=== PATIENT | male | born 1960 | race Caucasian/White ===

== ENCOUNTER → 2017-12-26 | Outpatient (CLI) | payer OTHER ==
[~2017-12-26] MED LIST: CLON.5 PO; Crutch1 EACH EXT; FLUO10 PO; IBUP600 PO; METH10 PO; OXYC30ER PO; PREG100 PO
[2017-12-26 18:12] LABS: BASOPHILS ABSOLUTE AUTO 0.09 K/mm3 (0.00-0.23); BASOPHILS PERCENT AUTO 1 % (0-2); EOSINOPHILS ABSOLUTE AUTO 0.29 K/mm3 (0.00-0.68); EOSINOPHILS PERCENT AUTO 3 % (0-6); Hematocrit 49.3 % (37.0-53.0); Hemoglobin 16.4 g/dL (13.5-17.5); IMMATURE GRAN ABSOLUTE AUTO 0.04 K/mm3 (0.00-0.10); IMMATURE GRAN PERCENT AUTO 0 % (0-1); LYMPHOCYTES ABSOLUTE AUTO 2.24 K/mm3 (0.84-5.20); LYMPHOCYTES PERCENT AUTO 22 % (21-46); MONOCYTES ABSOLUTE AUTO 0.77 K/mm3 (0.16-1.47); MONOCYTES PERCENT AUTO 8 % (4-13); Mean Corpuscular HGB 32.3 pg (26.0-34.0); Mean Corpuscular HGB Conc 33.3 g/dL (31.5-36.5); Mean Corpuscular Volume 97 fL (80-100); Mean Platelet Volume 10.1 fL (9.1-12.4); NEUTROPHILS ABSOLUTE AUTO 6.56 K/mm3 (1.96-9.15); NEUTROPHILS PERCENT AUTO 66 % (41-73); Platelet Count 261 K/mm3 (150-400); RDW Coefficient Variation 12.6 % (11.7-14.2); RDW Standard Deviation 45.4 fL (35.1-46.3); Red Blood Cell Count 5.08 M/mm3 (4.30-5.90); White Blood Cell Count 9.99 K/mm3 (4.00-11.30)
[2017-12-26 18:35] LABS: Prostate Specific Antigen 0.697 ng/mL (0.000-4.000)
== END | disposition home or self-care (01) ==
LOC: LAB 10:08
PROVIDERS: Nurse Practitioner Adult Health
DX: E29.1 Testicular hypofunction (principal); F32.9 Major depressive disorder, single episode, unspecified
CPT/HCPCS: 84153; 84402; 84403; 85025

== ENCOUNTER → 2018-04-03 | Outpatient (CLI) | payer OTHER ==
[2018-04-09 12:09] LABS: FREE TESTOSTERONE(DIRECT) 6.1 pg/mL (7.2-24.0); TESTOSTERONE, SERUM 557 ng/dL (264-916)
== END | disposition home or self-care (01) ==
LOC: LAB 18:00 → LAB SHORT 18:00
PROVIDERS: Nurse Practitioner Adult Health
DX: E29.1 Testicular hypofunction (principal)
CPT/HCPCS: 84402; 84403

== ENCOUNTER → 2018-08-02 | Outpatient (CLI) | payer OTHER ==
[2018-08-02 18:39] LABS: BASOPHILS ABSOLUTE AUTO 0.09 K/mm3 (0.00-0.23); BASOPHILS PERCENT AUTO 1 % (0-2); EOSINOPHILS ABSOLUTE AUTO 0.23 K/mm3 (0.00-0.68); EOSINOPHILS PERCENT AUTO 3 % (0-6); Hematocrit 47.4 % (37.0-53.0); Hemoglobin 15.3 g/dL (13.5-17.5); IMMATURE GRAN ABSOLUTE AUTO 0.02 K/mm3 (0.00-0.10); IMMATURE GRAN PERCENT AUTO 0 % (0-1); LYMPHOCYTES PERCENT AUTO 23 % (21-46); MONOCYTES ABSOLUTE AUTO 0.64 K/mm3 (0.16-1.47); MONOCYTES PERCENT AUTO 9 % (4-13); Mean Corpuscular HGB 31.9 pg (26.0-34.0); Mean Corpuscular HGB Conc 32.3 g/dL (31.5-36.5); Mean Corpuscular Volume 99 fL (80-100); Mean Platelet Volume 10.4 fL (9.1-12.4); NEUTROPHILS ABSOLUTE AUTO 4.45 K/mm3 (1.96-9.15); NEUTROPHILS PERCENT AUTO 63 % (41-73); Platelet Count 231 K/mm3 (150-400); RDW Coefficient Variation 12.6 % (11.7-14.2); RDW Standard Deviation 46.3 fL (35.1-46.3); Red Blood Cell Count 4.79 M/mm3 (4.30-5.90); White Blood Cell Count 7.03 K/mm3 (4.00-11.30)
[2018-08-02 19:17] LABS: Albumin, Blood 3.6 g/dL (3.4-5.0); Alk Phos 56 U/L (50-136); Anion Gap 6 mmol/L (6-16); Aspartate Aminotrans (AST/SGOT 23 U/L (12-37); Bilirubin, Total 0.3 mg/dL (0.1-1.0); Blood Urea Nitrogen 13 mg/dL (8-24); Bun/Creatinine Ratio 15.3 (12.0-20.0); CHOL/HDL RATIO 5.1; CO2, Blood 32 mmol/L (21-32); Calcium, Blood 8.5 mg/dL (8.5-10.1); Chloride, Blood 102 mmol/L (98-108); Cholesterol 199 mg/dL (50-200); Creatinine, Blood 0.85 mg/dL (0.60-1.20); Free Thyroxine 0.92 ng/dL (0.70-1.60); Globulin, Blood 3.7 g/dL (2.2-4.0); Glomerular Filtration Rate >60 (60-); Glucose, Blood 102 mg/dL (70-99); HDL Cholesterol 39 mg/dL (>39); LDL/HDL RATIO 2.9; Low Density Lipoprotein Chol 113 mg/dL (0-110); PSA, %Free 26.1 %; PSA, Free 0.191 ng/mL; Potassium, Blood 4.1 mmol/L (3.5-5.5); Prostate Specific Antigen 0.731 ng/mL (0.000-4.000); Sodium, Blood 140 mmol/L (136-145); Total Protein, Blood 7.3 g/dL (6.4-8.2); Triglycerides 234 mg/dL (30-160); Very Low Density Lipoprot Chol 46 mg/dL (6-32)
[2018-08-02 19:51] LABS: Alanine Aminotransfer (ALT/SGP 29 U/L (12-78)
[2018-08-05 19:06] LABS: FREE TESTOSTERONE(DIRECT) 9.1 pg/mL (7.2-24.0); TESTOSTERONE, SERUM 709 ng/dL (264-916)
== END | disposition home or self-care (01) ==
LOC: LAB SHORT 18:30 → LAB 18:30
PROVIDERS: Nurse Practitioner Adult Health
DX: N52.9 Male erectile dysfunction, unspecified (principal); J44.9 Chronic obstructive pulmonary disease, unspecified; G62.9 Polyneuropathy, unspecified; E78.5 Hyperlipidemia, unspecified; G89.4 Chronic pain syndrome; E29.1 Testicular hypofunction; I10 Essential (primary) hypertension; R73.01 Impaired fasting glucose
CPT/HCPCS: 80053; 80061; 83036; 84153; 84154; 84402; 84403; 84439; 84443; 85025

== ENCOUNTER → 2018-12-10 | Outpatient (CLI) | payer OTHER ==
[2018-12-10 18:06] LABS: BASOPHILS PERCENT AUTO 1 % (0-2); EOSINOPHILS PERCENT AUTO 1 % (0-6); Hematocrit 50.6 % (37.0-53.0); Hemoglobin 16.7 g/dL (13.5-17.5); IMMATURE GRAN ABSOLUTE AUTO 0.02 K/mm3 (0.00-0.10); IMMATURE GRAN PERCENT AUTO 0 % (0-1); LYMPHOCYTES ABSOLUTE AUTO 1.57 K/mm3 (0.84-5.20); LYMPHOCYTES PERCENT AUTO 18 % (21-46); MONOCYTES ABSOLUTE AUTO 0.75 K/mm3 (0.16-1.47); MONOCYTES PERCENT AUTO 8 % (4-13); Mean Corpuscular HGB 32.2 pg (26.0-34.0); Mean Corpuscular Volume 98 fL (80-100); NEUTROPHILS ABSOLUTE AUTO 6.36 K/mm3 (1.96-9.15); NEUTROPHILS PERCENT AUTO 72 % (41-73); RDW Coefficient Variation 12.8 % (11.7-14.2); RDW Standard Deviation 45.6 fL (35.1-46.3); Red Blood Cell Count 5.18 M/mm3 (4.30-5.90)
[2018-12-10 18:16] LABS: Mean Platelet Volume 10.7 fL (9.1-12.4); Platelet Count 163 K/mm3 (150-400)
[2018-12-10 21:19] LABS: Alanine Aminotransfer (ALT/SGP 23 U/L (12-78); Albumin, Blood 3.9 g/dL (3.4-5.0); Albumin/Globulin Ratio 1.1 (0.8-1.8); Alk Phos 54 U/L (50-136); Anion Gap 6 mmol/L (6-16); Aspartate Aminotrans (AST/SGOT 16 U/L (12-37); Bilirubin, Total 0.6 mg/dL (0.1-1.0); Blood Urea Nitrogen 12 mg/dL (8-24); Bun/Creatinine Ratio 15.7 (12.0-20.0); CHOL/HDL RATIO 5.4; CO2, Blood 32 mmol/L (21-32); Calcium, Blood 8.5 mg/dL (8.5-10.1); Chloride, Blood 101 mmol/L (98-108); Cholesterol 209 mg/dL (50-200); Creatinine, Blood 0.77 mg/dL (0.60-1.20); Globulin, Blood 3.7 g/dL (2.2-4.0); Glomerular Filtration Rate >60 (60-); Glucose, Blood 88 mg/dL (70-99); HDL Cholesterol 39 mg/dL (>39); LDL/HDL RATIO 3.7; Low Density Lipoprotein Chol 145 mg/dL (0-110); Potassium, Blood 4.3 mmol/L (3.5-5.5); Sodium, Blood 139 mmol/L (136-145); Total Protein, Blood 7.6 g/dL (6.4-8.2); Triglycerides 125 mg/dL (30-160); Very Low Density Lipoprot Chol 25 mg/dL (6-32)
== END ==
LOC: LAB SHORT 11:45 → LAB 11:45
PROVIDERS: Nurse Practitioner Family
DX: E29.1 Testicular hypofunction (principal); I10 Essential (primary) hypertension
CPT/HCPCS: 80053; 80061; 84403; 85025

== ENCOUNTER 2020-09-01 11:35 | Emergency (ER) | payer OTHER ==
[~2020-09-01] VITALS: Ht 190.5 cm; Wt 140.6 kg
[~2020-09-01 11:35] MED LIST changes: -AZELASTINE137 MCG/03; -CLONAZEPAM1 MG PO; -Depo-Testos200 MG/ML IM; -Levaquin750 MG PO; -Lisinopril-Hct1 EAC4 PO; -MOBIC15 MG PO; -OXYC30 PO
[2020-09-01 12:37] LABS: BASOPHILS ABSOLUTE AUTO 0.08 K/mm3 (0.00-0.23); BASOPHILS PERCENT AUTO 1 % (0-2); EOSINOPHILS ABSOLUTE AUTO 0.05 K/mm3 (0.00-0.68); EOSINOPHILS PERCENT AUTO 0 % (0-6); Hematocrit 44.4 % (37.0-53.0); Hemoglobin 14.4 g/dL (13.5-17.5); IMMATURE GRAN ABSOLUTE AUTO 0.04 K/mm3 (0.00-0.10); IMMATURE GRAN PERCENT AUTO 0 % (0-1); LYMPHOCYTES PERCENT AUTO 9 % (21-46); MONOCYTES ABSOLUTE AUTO 0.66 K/mm3 (0.16-1.47); MONOCYTES PERCENT AUTO 5 % (4-13); Mean Corpuscular HGB 32.4 pg (26.0-34.0); Mean Corpuscular HGB Conc 32.4 g/dL (31.5-36.5); Mean Corpuscular Volume 100 fL (80-100); NEUTROPHILS ABSOLUTE AUTO 10.83 K/mm3 (1.96-9.15); NEUTROPHILS PERCENT AUTO 85 % (41-73); Platelet Count 169 K/mm3 (150-400); RDW Coefficient Variation 13.5 % (11.7-14.2); RDW Standard Deviation 50.1 fL (35.1-46.3); Red Blood Cell Count 4.45 M/mm3 (4.30-5.90); White Blood Cell Count 12.76 K/mm3 (4.00-11.30)
[2020-09-01 12:44] LABS: Alanine Aminotransfer (ALT/SGP 38 U/L (12-78); Albumin/Globulin Ratio 0.8 (0.8-1.8); Alk Phos 50 U/L (50-136); Anion Gap 3 mmol/L (6-16); Aspartate Aminotrans (AST/SGOT 79 U/L (12-37); Bilirubin, Total 0.9 mg/dL (0.1-1.0); Blood Urea Nitrogen 20 mg/dL (8-24); Bun/Creatinine Ratio 28.7 (12.0-20.0); CO2, Blood 32 mmol/L (21-32); Calcium, Blood 7.9 mg/dL (8.5-10.1); Chloride, Blood 99 mmol/L (98-108); Globulin, Blood 3.7 g/dL (2.2-4.0); Glomerular Filtration Rate >60 (60-); Glucose, Blood 114 mg/dL (70-99); Potassium, Blood 4.2 mmol/L (3.5-5.5); Sodium, Blood 134 mmol/L (136-145); Total Protein, Blood 6.7 g/dL (6.4-8.2)
[2020-09-01 13:28] LABS: Source, Urine Voided
[2020-09-01 14:01] LABS: Bilirubin, Urine Neg (Neg); Blood, Urine 1+ (Neg); Glucose Qualitative, Urine Neg (Neg); Ketones, Urine Neg (Neg); Leukocyte Esterase, Urine Neg (Neg); Nitrite, Urine Neg (Neg); Protein, Urine 1+ (Neg); Urobilinogen, Urine NORM (Normal)
[2020-09-01 14:18] LABS: Appearance, Urine Clear (Clear); Color, Urine Yellow (P-Yellow)
[2020-09-01 14:19] LABS: Bacteria Few /hpf; Squamous Epithelial Cells Not Seen /hpf (Few); White Blood Cells, Urine 0-2 /hpf (0-5)
[2020-09-01] MEDS ORDERED: MOBIC15 MG PO (16:11)
[2020-09-01] MEDS ORDERED: Lisinopril-Hct1 EAC4 PO (16:12)
[2020-09-01] MEDS ORDERED: CLONAZEPAM1 MG PO (16:12)
[2020-09-01] MEDS ORDERED: AZELASTINE137 MCG/03 (16:13)
[2020-09-01] MEDS ORDERED: METH10 PO (16:16)
[2020-09-01] MEDS ORDERED: OXYC30 PO (16:17)
[2020-09-01] MEDS ORDERED: Depo-Testos200 MG/ML IM (16:22)
[2020-09-01] MEDS ORDERED: Levaquin750 MG PO (17:10)
[2020-09-01 17:42] LABS: U Amphetamine Screen Not Detected; U Barbituate Screen Not Detected; U Benzodiazapine Screen DETECTED; U Buprenorphine Screen Not Detected; U Cannabinoids Screen DETECTED; U Cocaine Screen Not Detected; U Methadone Screen DETECTED; U Methamphetamine Screen Not Detected; U Opiates Screen Not Detected; U Oxycodone Screen DETECTED; U Phencyclidine Screen Not Detected; U Propoxyphene Screen Not Detected
== END 2020-09-01 17:59 | disposition home or self-care (01) ==
LOC: ER 11:35
PROVIDERS: Emergency Medicine
DX: R50.9 Fever, unspecified (principal); R00.0 Tachycardia, unspecified; R65.10 Systemic inflammatory response syndrome (SIRS) of non-infectious origin without acute organ dysfunction; L73.9 Follicular disorder, unspecified; R10.30 Lower abdominal pain, unspecified; R41.0 Disorientation, unspecified; Z20.828 Contact with and (suspected) exposure to other viral communicable diseases; Z79.52 Long term (current) use of systemic steroids; Z79.899 Other long term (current) drug therapy; Z87.891 Personal history of nicotine dependence
CPT/HCPCS: 36415; 71045; 74177; 80053; 81001; 83605; 83690; 84484; 85025; 87040; 93005; 93010; 96361; 96365-59; 96367; 96375; 99285-25; A9270; J2060; J2543; J3010; J3370; J7030; Q9967; U0003

== ENCOUNTER → 2020-09-01 | Outpatient (CLI) | payer OTHER ==
[~2020-09-01] MED LIST changes: +AZELASTINE137 MCG/03; +CLONAZEPAM1 MG PO; +Depo-Testos200 MG/ML IM; +Levaquin750 MG PO; +Lisinopril-Hct1 EAC4 PO; +METPRE4DP PO; +MOBIC15 MG PO; +OXYC30 PO; +PRED20 PO
[2020-09-01 11:20] LABS: BASOPHILS ABSOLUTE AUTO 0.05 K/mm3 (0.00-0.23); BASOPHILS PERCENT AUTO 0 % (0-2); EOSINOPHILS ABSOLUTE AUTO 0.06 K/mm3 (0.00-0.68); EOSINOPHILS PERCENT AUTO 1 % (0-6); Hematocrit 44.8 % (37.0-53.0); IMMATURE GRAN ABSOLUTE AUTO 0.04 K/mm3 (0.00-0.10); IMMATURE GRAN PERCENT AUTO 0 % (0-1); LYMPHOCYTES ABSOLUTE AUTO 1.01 K/mm3 (0.84-5.20); LYMPHOCYTES PERCENT AUTO 8 % (21-46); MONOCYTES ABSOLUTE AUTO 0.73 K/mm3 (0.16-1.47); MONOCYTES PERCENT AUTO 6 % (4-13); Mean Corpuscular HGB 32.5 pg (26.0-34.0); Mean Corpuscular HGB Conc 33.5 g/dL (31.5-36.5); Mean Corpuscular Volume 97 fL (80-100); Mean Platelet Volume 9.8 fL (9.1-12.4); NEUTROPHILS ABSOLUTE AUTO 10.98 K/mm3 (1.96-9.15); NEUTROPHILS PERCENT AUTO 85 % (41-73); Platelet Count 164 K/mm3 (150-400); RDW Coefficient Variation 13.8 % (11.7-14.2); RDW Standard Deviation 49.2 fL (35.1-46.3); Red Blood Cell Count 4.62 M/mm3 (4.30-5.90); White Blood Cell Count 12.87 K/mm3 (4.00-11.30)
[2020-09-01 11:31] LABS: Alanine Aminotransfer (ALT/SGP 43 U/L (12-78); Albumin, Blood 3.3 g/dL (3.4-5.0); Albumin/Globulin Ratio 0.8 (0.8-1.8); Alk Phos 49 U/L (40-126); Anion Gap 6 mmol/L (6-16); Aspartate Aminotrans (AST/SGOT 68 U/L (12-37); Bilirubin, Total 0.9 mg/dL (0.1-1.0); Blood Urea Nitrogen 20 mg/dL (8-24); Bun/Creatinine Ratio 24.1 (12.0-20.0); CO2, Blood 32 mmol/L (21-32); Calcium, Blood 8.4 mg/dL (8.5-10.1); Chloride, Blood 95 mmol/L (98-108); Creatinine, Blood 0.83 mg/dL (0.60-1.20); Globulin, Blood 4.1 g/dL (2.2-4.0); Glomerular Filtration Rate >60 (60-); Glucose, Blood 124 mg/dL (70-99); Potassium, Blood 3.7 mmol/L (3.5-5.5); Sodium, Blood 133 mmol/L (136-145); Total Protein, Blood 7.4 g/dL (6.4-8.2)
== END | disposition home or self-care (01) ==
LOC: LAB SHORT 11:14 → LAB EV 11:14
PROVIDERS: Chiropractor
DX: R50.9 Fever, unspecified (principal); Z20.828 Contact with and (suspected) exposure to other viral communicable diseases
CPT/HCPCS: 80053; 83605; 85025; 87040; U0003

== ENCOUNTER → 2021-02-16 | Outpatient (CLI) | payer OTHER ==
[~2021-02-16] MED LIST changes: +AZELASTINE137 MCG/03; +CLONAZEPAM1 MG PO; +Depo-Testos200 MG/ML IM; +Levaquin750 MG PO; +Lisinopril-Hct1 EAC4 PO; +MOBIC15 MG PO; +OXYC30 PO
[2021-02-16 11:29] LABS: BASOPHILS ABSOLUTE AUTO 0.04 K/mm3 (0.00-0.23); BASOPHILS PERCENT AUTO 0 % (0-2); EOSINOPHILS ABSOLUTE AUTO 0.01 K/mm3 (0.00-0.68); EOSINOPHILS PERCENT AUTO 0 % (0-6); Hematocrit 47.6 % (37.0-53.0); Hemoglobin 15.6 g/dL (13.5-17.5); IMMATURE GRAN ABSOLUTE AUTO 0.09 K/mm3 (0.00-0.10); IMMATURE GRAN PERCENT AUTO 1 % (0-1); LYMPHOCYTES ABSOLUTE AUTO 0.98 K/mm3 (0.84-5.20); LYMPHOCYTES PERCENT AUTO 6 % (21-46); MONOCYTES ABSOLUTE AUTO 0.74 K/mm3 (0.16-1.47); MONOCYTES PERCENT AUTO 5 % (4-13); Mean Corpuscular HGB 32.3 pg (26.0-34.0); Mean Corpuscular HGB Conc 32.8 g/dL (31.5-36.5); Mean Corpuscular Volume 99 fL (80-100); Mean Platelet Volume 10.3 fL (9.1-12.4); NEUTROPHILS ABSOLUTE AUTO 14.24 K/mm3 (1.96-9.15); NEUTROPHILS PERCENT AUTO 88 % (41-73); Platelet Count 190 K/mm3 (150-400); RDW Coefficient Variation 13.9 % (11.7-14.2); RDW Standard Deviation 51.1 fL (35.1-46.3); Red Blood Cell Count 4.83 M/mm3 (4.30-5.90)
[2021-02-16 11:43] LABS: Alanine Aminotransfer (ALT/SGP 23 U/L (12-78); Albumin, Blood 3.4 g/dL (3.4-5.0); Albumin/Globulin Ratio 0.8 (0.8-1.8); Alk Phos 47 U/L (40-126); Anion Gap 8 mmol/L (6-16); Aspartate Aminotrans (AST/SGOT 20 U/L (12-37); Bilirubin, Total 0.8 mg/dL (0.1-1.0); Blood Urea Nitrogen 16 mg/dL (8-24); Bun/Creatinine Ratio 19.5 (12.0-20.0); CO2, Blood 31 mmol/L (21-32); Calcium, Blood 9.3 mg/dL (8.5-10.1); Chloride, Blood 99 mmol/L (98-108); Creatinine, Blood 0.82 mg/dL (0.60-1.20); Globulin, Blood 4.2 g/dL (2.2-4.0); Glomerular Filtration Rate >60 (60-); Glucose, Blood 121 mg/dL (70-99); Potassium, Blood 4.1 mmol/L (3.5-5.5); Sodium, Blood 138 mmol/L (136-145); Total Protein, Blood 7.6 g/dL (6.4-8.2)
== END | disposition home or self-care (01) ==
LOC: LAB EV 11:17 → LAB SHORT 11:17
PROVIDERS: Physician Assistant
DX: S71.101A Unspecified open wound, right thigh, initial encounter (principal); S31.809A Unspecified open wound of unspecified buttock, initial encounter; L28.2 Other prurigo
CPT/HCPCS: 80053; 85025; 85651; 87070; 87075; 87077; 87147; 87186; 87205

== ENCOUNTER → 2021-07-29 | Outpatient (CLI) | payer OTHER ==
[2021-07-29 12:04] LABS: BASOPHILS ABSOLUTE AUTO 0.08 K/mm3 (0.00-0.23); BASOPHILS PERCENT AUTO 1 % (0-2); EOSINOPHILS ABSOLUTE AUTO 0.16 K/mm3 (0.00-0.68); EOSINOPHILS PERCENT AUTO 3 % (0-6); Hematocrit 47.9 % (37.0-53.0); Hemoglobin 15.9 g/dL (13.5-17.5); IMMATURE GRAN ABSOLUTE AUTO 0.03 K/mm3 (0.00-0.10); IMMATURE GRAN PERCENT AUTO 1 % (0-1); LYMPHOCYTES ABSOLUTE AUTO 1.87 K/mm3 (0.84-5.20); LYMPHOCYTES PERCENT AUTO 29 % (21-46); MONOCYTES ABSOLUTE AUTO 0.58 K/mm3 (0.16-1.47); MONOCYTES PERCENT AUTO 9 % (4-13); Mean Corpuscular HGB 31.8 pg (26.0-34.0); Mean Corpuscular HGB Conc 33.2 g/dL (31.5-36.5); Mean Corpuscular Volume 96 fL (80-100); Mean Platelet Volume 10.4 fL (9.1-12.4); NEUTROPHILS ABSOLUTE AUTO 3.68 K/mm3 (1.96-9.15); NEUTROPHILS PERCENT AUTO 57 % (41-73); Platelet Count 215 K/mm3 (150-400); RDW Coefficient Variation 13.4 % (11.7-14.2); RDW Standard Deviation 47.7 fL (35.1-46.3)
[2021-07-29 12:41] LABS: Alanine Aminotransfer (ALT/SGP 42 U/L (12-78); Albumin, Blood 3.7 g/dL (3.4-5.0); Alk Phos 85 U/L (40-126); Anion Gap 5 mmol/L (6-16); Aspartate Aminotrans (AST/SGOT 15 U/L (12-37); Bilirubin, Total 0.2 mg/dL (0.1-1.0); Blood Urea Nitrogen 20 mg/dL (8-24); Bun/Creatinine Ratio 26.7 (12.0-20.0); CO2, Blood 31 mmol/L (21-32); Calcium, Blood 8.3 mg/dL (8.5-10.1); Chloride, Blood 103 mmol/L (98-108); Creatinine, Blood 0.75 mg/dL (0.60-1.20); Globulin, Blood 3.6 g/dL (2.2-4.0); Glomerular Filtration Rate >60 (60-); Glucose, Blood 95 mg/dL (70-99); Potassium, Blood 4.5 mmol/L (3.5-5.5); Sodium, Blood 139 mmol/L (136-145); Total Protein, Blood 7.3 g/dL (6.4-8.2)
== END | disposition home or self-care (01) ==
LOC: LAB SHORT 11:58 → LAB 11:58
PROVIDERS: Family Medicine
DX: R58 Hemorrhage, not elsewhere classified (principal)
CPT/HCPCS: 80053; 85025

== ENCOUNTER 2021-11-23 11:49 | Inpatient (IN) | payer OTHER ==
[~2021-11-23] VITALS: Ht 198.1 cm; Wt 120.2 kg
[2021-11-23 12:30] LABS: BASOPHILS ABSOLUTE AUTO 0.08 K/mm3 (0.00-0.23); BASOPHILS PERCENT AUTO 1 % (0-2); EOSINOPHILS ABSOLUTE AUTO 0.13 K/mm3 (0.00-0.68); EOSINOPHILS PERCENT AUTO 2 % (0-6); Hematocrit 48.4 % (37.0-53.0); Hemoglobin 16.1 g/dL (13.5-17.5); IMMATURE GRAN ABSOLUTE AUTO 0.01 K/mm3 (0.00-0.10); IMMATURE GRAN PERCENT AUTO 0 % (0-1); LYMPHOCYTES PERCENT AUTO 20 % (21-46); MONOCYTES ABSOLUTE AUTO 0.69 K/mm3 (0.16-1.47); MONOCYTES PERCENT AUTO 11 % (4-13); Mean Corpuscular HGB 32.1 pg (26.0-34.0); Mean Corpuscular HGB Conc 33.3 g/dL (31.5-36.5); Mean Corpuscular Volume 97 fL (80-100); NEUTROPHILS ABSOLUTE AUTO 4.37 K/mm3 (1.96-9.15); NEUTROPHILS PERCENT AUTO 66 % (41-73); Platelet Count 262 K/mm3 (150-400); RDW Standard Deviation 46.2 fL (35.1-46.3); Red Blood Cell Count 5.01 M/mm3 (4.30-5.90); White Blood Cell Count 6.58 K/mm3 (4.00-11.30)
[2021-11-23 13:08] LABS: Alanine Aminotransfer (ALT/SGP 37 U/L (12-78); Albumin, Blood 3.6 g/dL (3.4-5.0); Albumin/Globulin Ratio 0.9 (0.8-1.8); Alk Phos 83 U/L (50-136); Anion Gap 3 mmol/L (6-16); Aspartate Aminotrans (AST/SGOT 23 U/L (12-37); Bilirubin, Total 0.3 mg/dL (0.1-1.0); Blood Urea Nitrogen 23 mg/dL (8-24); Bun/Creatinine Ratio 35.6 (12.0-20.0); CO2, Blood 33 mmol/L (21-32); Calcium, Blood 9.4 mg/dL (8.5-10.1); Chloride, Blood 102 mmol/L (98-108); Creatinine, Blood 0.65 mg/dL (0.60-1.20); Globulin, Blood 3.9 g/dL (2.2-4.0); Glomerular Filtration Rate >60 (60-); Glucose, Blood 94 mg/dL (70-99); Potassium, Blood 4.3 mmol/L (3.5-5.5); Sodium, Blood 138 mmol/L (136-145); Total Protein, Blood 7.5 g/dL (6.4-8.2)
[2021-11-23 13:13] LABS: Troponin I 0.692 ng/mL (0.000-0.040)
--- NOTE | 2021-11-23 16:00 | NUR ---
Dr. 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 Also got telephone report from Bruno Stewart in ED. Pt will be going to the clinical laboratory aides teacher for angiogram before coming to PCU 1.
[2021-11-23 17:34] LABS: Influenza A, PCR NEGATIVE (NEGATIVE); Influenza B, PCR NEGATIVE (NEGATIVE); Resp Syncytial Virus, PCR NEGATIVE (NEGATIVE); SARS-Cov-2 (COVID-19) PCR, MMC NEGATIVE (NEGATIVE)
--- NOTE | 2021-11-23 19:13 | NUR ---
PT ARRIVED TO ICU 3 FROM [facility]. PT HAS TR BAND TO R RADIAL THAT IS REPORTED TO HAVE 18CC OF AIR. NO SIGN OF BLEEDING OR HEMATOMA. ACT GREATER THAN 200 AT 1715 THEREFORE WILL WAIT 2 HRS BEFORE DEFLATING. R HAND IS WARM, SPO2 ON R HAND READING 88-89%. PT C/O CHRONIC PAIN IN BACK. GAVE SCHEDULED METHADONE. NO IV'S RUNNING. DENIES CP. REPORT GIVEN TO NOC RN WHO WILL ASSUME CARE.
--- NOTE | 2021-11-23 20:00 | NUR ---
ASSUMED CARE OF PATIENT AT 1900. RECEIVED REPORT FROM LUPE MORA. PT RETURNED FROM PCI AT 1833 THIS EVENING AFTER RECEIVING 4 METAL STENTS; DIAGONAL, MID CIRCUMFLEX, PROXIMAL RCA, PROXIMAL OBTUSE MARGINAL. PT HAD COMPLAINED OF INCREASING HEARTBURN/CHESTPAIN X3-4 DAYS AND THEN STARTED HAVING RADIATING LEFT ARM PAIN. HE IS A/O X4, ABLE TO FOLLOW COMMANDS. HAS CHRONIC BACK PAIN AND RIGHT KNEE PAIN. TAKES METHADONE AND OXYCODONE. ALSO HAS CHRONIC NEUROPATHY IN BLE FOR WHICH HE TAKES LYRICA. AFEBRILE. LUNGS ARE CLEAR T/O, SPO2 >98% ON RA. HR IS SINUS RHYTHM WITH RATE IN 60'S, BP NORMOTENSIVE. ON CARDIAC DIET, AND REQUESTING FOOD. USING BEDSIDE URINAL WITHOUT DIFFICULTY, CLEAR YELLOW URINE. TR BAND IN PLACE TO RIGHT WRIST, 18CC IN PLACE. MOST RECENT ACT OF 237 @ 1741, WILL START REMOVING AIR PER PROTOCOL. DISTAL EXTREMITY IS WARM, WITH CAP REFILL <3 SEC, SPO2 MONITORING ON RIGHT THUMB, NO SIGN OF HEMATOMA AT PUNCTURE SITE. HE IS C/O TINGLING IN RIGHT FINGERS. NS RUNNING AT 100ML/HR X1L IN RIGHT WRIST 18G PERIPHERAL. 20G IN LAC. SKIN OVERALL C/D/I. ORDERS REVIEWED, WILL TREAT PRESCRIBED.
--- NOTE | 2021-11-24 06:36 | NUR ---
PT SLEPT MOST OF SHIFT. PT REQUESTED OXYCODONE Q4H, MEDICATED WITH METHADONE PER EMAR. HE REMAINED A/O X4, COOPERATIVE, ABLE TO FOLLOW COMMANDS AND EXPRESS NEEDS. NO REPORTS OF CHEST PAIN. TR BAND REMOVED AROUND 0400, REPLACED WITH WINDOW DRESSING AND REPLACED WRIST STABLIZER, NO EVIDENCE OF BLEEDING/HEMATOMA. HR REMAINED SINUS RHYTHM, RATE IN 50-60'S. BP STABLE. LUNGS CLEAR, SPO2 >98%. PLACED 2L O2 NC WHILE SLEEPING AND DID NOT REQUIRE CPAP. PT USED URINAL AT BEDSIDE WITHOUT ASSISTANCE. PERIPHERAL IV'S SALINE LOCKED, RECEIVED 1L NS PER EMAR. WILL REPORT TO ONCOMING SHIFT.
[2021-11-24 07:20] LABS: BASOPHILS PERCENT AUTO 2 % (0-2); EOSINOPHILS ABSOLUTE AUTO 0.13 K/mm3 (0.00-0.68); EOSINOPHILS PERCENT AUTO 2 % (0-6); Hematocrit 45.1 % (37.0-53.0); Hemoglobin 14.6 g/dL (13.5-17.5); IMMATURE GRAN ABSOLUTE AUTO 0.02 K/mm3 (0.00-0.10); IMMATURE GRAN PERCENT AUTO 0 % (0-1); LYMPHOCYTES ABSOLUTE AUTO 1.57 K/mm3 (0.84-5.20); LYMPHOCYTES PERCENT AUTO 23 % (21-46); MONOCYTES ABSOLUTE AUTO 0.73 K/mm3 (0.16-1.47); MONOCYTES PERCENT AUTO 11 % (4-13); Mean Corpuscular HGB 32.1 pg (26.0-34.0); Mean Corpuscular HGB Conc 32.4 g/dL (31.5-36.5); Mean Corpuscular Volume 99 fL (80-100); Mean Platelet Volume 10.2 fL (9.1-12.4); NEUTROPHILS ABSOLUTE AUTO 4.31 K/mm3 (1.96-9.15); NEUTROPHILS PERCENT AUTO 63 % (41-73); Platelet Count 226 K/mm3 (150-400); RDW Coefficient Variation 13.2 % (11.7-14.2); RDW Standard Deviation 48.1 fL (35.1-46.3); Red Blood Cell Count 4.55 M/mm3 (4.30-5.90); White Blood Cell Count 6.86 K/mm3 (4.00-11.30)
--- NOTE | 2021-11-24 07:30 | NUR ---
ASSUMED CARE: PT SITTING UPRIGHT IN BED WANTING TO KNOW WHEN HE CAN GO HOME. EXPLAINED THAT DR ATYLOR WILL COME SEE HIM AND MAKE THAT CALL. POST CATH SITE TO RIGHT WRIST WITH NO SIGN OF BLEED OR HEMATOMA. NSR ON TELE, NIGHT RN REPORTS NO ECTOPY
[2021-11-24 07:36] LABS: Anion Gap 4 mmol/L (6-16); Blood Urea Nitrogen 12 mg/dL (8-24); CHOL/HDL RATIO 4.7; CO2, Blood 31 mmol/L (21-32); Calcium, Blood 9.1 mg/dL (8.5-10.1); Chloride, Blood 105 mmol/L (98-108); Cholesterol 160 mg/dL (50-200); Creatinine, Blood 0.67 mg/dL (0.60-1.20); Glomerular Filtration Rate >60 (60-); Glucose, Blood 90 mg/dL (70-99); HDL Cholesterol 34 mg/dL (>39); LDL/HDL RATIO 2.8; Low Density Lipoprotein Chol 97 mg/dL (0-110); Phosphorus, Blood 2.8 mg/dL (2.5-4.9); Potassium, Blood 4.4 mmol/L (3.5-5.5); Sodium, Blood 140 mmol/L (136-145); Triglycerides 146 mg/dL (30-160); Very Low Density Lipoprot Chol 29 mg/dL (6-32)
[2021-11-24] MEDS ORDERED: Aspir 8181 MG PO (10:21)
[2021-11-24] MEDS ORDERED: CLOP75 PO (10:22)
[2021-11-24] MEDS ORDERED: ATOR80 PO (10:22)
[2021-11-24] MEDS ORDERED: PANT40 PO (10:23)
--- NOTE | 2021-11-24 10:38 | NUR ---
DR GURROLA SAW PT AND SAYS HE IS CLEARED TO GO HOME ONCE ECHO IS COMPLETED. PT STATES HE CAN NOT WAIT FOR ECHO TO BE COMPLETED. CALL TO [facility] WHO STATED THAT THEY WERE UNSURE WHEN TECH COULD PERFORM TEST. CALL TO DR GURROLA WHO STATES TEST CAN BE COMPLETED OUTPT. CALL TO SCHEDULING DEPARTMENT WHO STATES THEY CAN GET PT SCHEDULED OUTPT IN NOVEMBER. PT AGREEABLE TO THIS
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
--- NOTE | 2021-11-24 11:08 | NUR ---
PT'S IVS DC'D WNL. PT GIVEN INSTRUCTIONS REGARDING MED ORDERS AND FOLLOW UP APPOINTMENTS. PT ESCORTED OUT VIA WHEELCHAIR BY HOSPITAL STAFF. DENIED FURTHER QUESTIONS OR CONCERNS
--- NOTE | 2021-11-24 16:18 | NUR ---
Per Dr. Greenberg discharge appropriate on: 11/24/21. Patient does not oppose to discharge and eager to return to home. Patient discharged to his residence. Patient drove himself to the ER and will drive himself home by private vehicle. DME: None ordered; patient has a cane and uses for minimal assistance. [facility] Transition of Care will contact patient to schedule hospital follow-up with PCP Dr. Desir. Patient will need follow-up with cardio rehab and outpatient PTOT. No barriers to discharge at this time.
== END 2021-11-24 11:10 | disposition home or self-care (01) | DRG 248 ==
LOC: ER 11:49 → PCU 15:13 → ICUE 15:13 → PCU 16:57 → ICUW 17:16 → ICUE 18:33
PROVIDERS: Physician Assistant; Student in an Organized Health Care Education/Training Program; ADMIT Family Medicine
PROC: 02723GZ Dilation of Coronary Artery, Three Arteries with Four or More Intraluminal Devices, Percutaneous Approach (ICD-10-PCS; principal; 2021-11-23)
PROC: 4A023N7 Measurement of Cardiac Sampling and Pressure, Left Heart, Percutaneous Approach (ICD-10-PCS; 2021-11-23)
PROC: B2111ZZ Fluoroscopy of Multiple Coronary Arteries using Low Osmolar Contrast (ICD-10-PCS; 2021-11-23)
PROC: B2151ZZ Fluoroscopy of Left Heart using Low Osmolar Contrast (ICD-10-PCS; 2021-11-23)
DX: I21.4 Non-ST elevation (NSTEMI) myocardial infarction (principal); E66.9 Obesity, unspecified; G47.33 Obstructive sleep apnea (adult) (pediatric); I10 Essential (primary) hypertension; G62.9 Polyneuropathy, unspecified; M19.90 Unspecified osteoarthritis, unspecified site; Z20.822 Contact with and (suspected) exposure to COVID-19; I25.10 Atherosclerotic heart disease of native coronary artery without angina pectoris; G89.29 Other chronic pain; M48.00 Spinal stenosis, site unspecified; Z68.30 Body mass index [BMI] 30.0-30.9, adult; Z79.899 Other long term (current) drug therapy; Z98.890 Other specified postprocedural states; Z89.412 Acquired absence of left great toe; Z89.422 Acquired absence of other left toe(s); Z87.891 Personal history of nicotine dependence
CPT/HCPCS: 0241U; 36415; 71046; 76937; 80053; 80061; 80069; 83036; 83690; 83735; 84484; 85025; 85347; 85520; 92928; 92929; 93005; 93010; 93458; 94760; 96374; 96375; 97140; 97161; 97165; 97530; 99152; 99153; 99285-25; A9270; C1725; C1769; C1876; C1887; C1894; J0461; J1265; J1644; J2250; J2370; J3010; J3246; J7030; J7050; Q9967

== ENCOUNTER → 2023-03-14 | Outpatient (CLI) | payer OTHER ==
[~2023-03-14] MED LIST changes: +ATOR80 PO; +Aspir 8181 MG PO; +CLOP75 PO; +PANT40 PO
== END | disposition home or self-care (01) ==
LOC: LAB SHORT 12:22
DX: L72.0 Epidermal cyst (principal)
CPT/HCPCS: 88304

== ENCOUNTER → 2023-10-04 | Outpatient (CLI) | payer OTHER | END | disposition home or self-care (01) | LOC: LAB SHORT 14:28 → PLD 14:28 | DX: L72.0 Epidermal cyst (principal); R23.4 Changes in skin texture | CPT/HCPCS: 88304; 88305 ==

== ENCOUNTER → 2024-01-11 | Outpatient (CLI) | payer OTHER | END | disposition home or self-care (01) | LOC: LAB 17:59 → LAB SHORT 17:59 | DX: R30.0 Dysuria (principal) | CPT/HCPCS: 87077; 87086; 87186 ==

== ENCOUNTER 2024-10-30 09:56 | Emergency (ER) | payer OTHER ==
[~2024-10-30] VITALS: Ht 182.9 cm; Wt 113.4 kg
[2024-10-30] MEDS ORDERED: Ketorolac Tromethamine 30mg Vial IM ONE (12:35)
[2024-10-30] MEDS ORDERED: Dexamethasone Sod Phos 10 MG/ML 1ML VIAL IM ONE (12:35)
[2024-10-30] MEDS ORDERED: METPRE4DP PO (13:29)
[2024-10-30 13:47] VITALS: BP 131/92
[2024-10-30] MEDS ORDERED: Prednisone10 MG PO (14:39)
== END 2024-10-30 14:41 | disposition home or self-care (01) ==
LOC: ER 09:56
DX: M54.16 Radiculopathy, lumbar region (principal); L98.9 Disorder of the skin and subcutaneous tissue, unspecified; J44.9 Chronic obstructive pulmonary disease, unspecified; R73.03 Prediabetes; I25.10 Atherosclerotic heart disease of native coronary artery without angina pectoris; Z79.899 Other long term (current) drug therapy; Z79.82 Long term (current) use of aspirin; Z87.891 Personal history of nicotine dependence
CPT/HCPCS: 10061; 96372-59; 99283-25; J1100; J1885

== ENCOUNTER → 2025-02-18 | Outpatient (CLI) | payer OTHER ==
[~2025-02-18] MED LIST changes: +Prednisone10 MG PO
== END | disposition home or self-care (01) ==
LOC: LAB SHORT 12:47 → LAB 12:47
DX: R30.0 Dysuria (principal)
CPT/HCPCS: 87077; 87086; 87186